=== PATIENT | female | born 2000 | race Caucasian/White ===

== ENCOUNTER 2022-09-29 14:05 | Emergency (ER) | payer SELFPAY ==
[2022-09-29 14:53] LABS: Bilirubin Neg (Negative); Blood, Urine Negative (Negative); Clarity Clear (Clear); Glucose, Urine (Dipstick) Normal (Negative); Ketone, Urine Negative (Negative); Leukocyte 25 (Negative); Nitrite Negative (Negative); Protein, Urine (Dipstick) Negative (Neg-Trace); Urobilinogen Normal mg/dL (Less than 2)
[2022-09-29 15:05] LABS: Bacteria/HPF 3+ HPF (None Seen); RBC/HPF 0-3 HPF (0-3); Squamous Epithelial 0-3 HPF (0-3); WBC/HPF 0-3 HPF (0-3)
[2022-09-29 15:22] LABS: ALT (SGPT) 12 U/L (8-55); AST (SGOT) 16 U/L (5-34); Albumin 3.7 g/dL (3.5-5.0); Alkaline Phosphatase 53 U/L (40-110); Anion Gap 12 mmol/L (10-20); BUN (Urea Nitrogen) 7 mg/dL (7.0-18.7); Bilirubin, Total 0.2 mg/dL (0.2-1.2); Calc. Creatinine Clearance 0 mL/min (70-130); Calcium 8.3 mg/dL (7.8-10.44); Carbon Dioxide 20 mmol/L (22-29); Chloride 107 mmol/L (98-107); Estimated GFR 128; Globulin 2.7 g/dL (2.4-3.5); Glucose 101 mg/dL (70-105); Potassium 3.9 mmol/L (3.5-5.1); Protein, Total 6.4 g/dL (6.0-8.3); Sodium 135 mmol/L (136-145)
[2022-09-29 15:29] LABS: #Basophils 0.1 10x3/uL (0.0-0.2); #Eosinphils 0.3 10x3/uL (0.0-0.5); #Monocytes 0.5 10x3/uL (0.0-1.1); #Neutrophils 7.6 10x3/uL (1.5-8.4); %Basophils 0.8 % (0.0-2.0); %Eosinophils 2.4 % (0.0-6.0); %Lymphocytes 17.7 % (18.0-47.0); %Monocytes 5.2 % (0.0-10.0); %Neutrophils 73.4 % (40.0-75.0); Hemoglobin 11.2 g/dL (12.0-15.5); Mean Corpuscular HGB CONC 33.4 g/dL (32.0-36.0); Mean Corpuscular Hemoglobin 28.9 pg (27.0-33.0); Mean Corpuscular Volume 86.6 fl (81.6-98.3); Mean Platelet Volume 9.2 fl (7.4-10.4); Platelet Count 399 10x3/uL (150-450); RBC Distribution Width 12.6 % (11.5-14.5); Red Blood Cell (RBC) Count 3.87 10x6/uL (3.90-5.03); White Blood Cell (WBC) Count 10.3 10x3/uL (3.5-10.5)
[2022-09-29 15:33] LABS: INR-International Normal Ratio 0.9; PTT 21.8 sec (22.0-33.0); Prothrombin Time 9.8 sec (9.5-12.1)
== END 2022-09-29 17:10 | disposition home or self-care (01) ==
LOC: CSHERS 14:05
DX: R56.9 Unspecified convulsions (principal); F17.210 Nicotine dependence, cigarettes, uncomplicated
CPT/HCPCS: 36415; 80053; 81003; 81015; 85025; 85610; 85730; 93005

== ENCOUNTER 2022-11-16 12:25 | Day surgery (SDC) | payer OTHER ==
[2022-11-16] MEDS ORDERED: Acetaminophen 500 MG TAB PO SCH (13:15)
[2022-11-16 13:40] LABS: Bilirubin Neg (Negative); Blood, Urine Negative (Negative); Clarity Clear (Clear); Glucose, Urine (Dipstick) Normal (Negative); Ketone, Urine Negative (Negative); Leukocyte Negative (Negative); Nitrite Negative (Negative); Protein, Urine (Dipstick) Negative (Neg-Trace); Urobilinogen Normal mg/dL (Less than 2)
[2022-11-16 13:47] LABS: Bacteria/HPF None Seen HPF (None Seen); RBC/HPF None Seen HPF (0-3); Squamous Epithelial 0-3 HPF (0-3); WBC/HPF None Seen HPF (0-3)
[2022-11-16 14:05] LABS: #Basophils 0.1 10x3/uL (0.0-0.2); #Eosinphils 0.7 10x3/uL (0.0-0.5); #Monocytes 0.6 10x3/uL (0.0-1.1); #Neutrophils 8.4 10x3/uL (1.5-8.4); %Basophils 0.7 % (0.0-2.0); %Eosinophils 5.7 % (0.0-6.0); %Lymphocytes 19.2 % (18.0-47.0); %Monocytes 4.9 % (0.0-10.0); %Neutrophils 68.2 % (40.0-75.0); Hemoglobin 10.8 g/dL (12.0-15.5); Mean Corpuscular HGB CONC 33.4 g/dL (32.0-36.0); Mean Corpuscular Hemoglobin 28.3 pg (27.0-33.0); Mean Corpuscular Volume 84.8 fl (81.6-98.3); Mean Platelet Volume 9.1 fl (7.4-10.4); Platelet Count 374 10x3/uL (150-450); RBC Distribution Width 12.4 % (11.5-14.5); Red Blood Cell (RBC) Count 3.81 10x6/uL (3.90-5.03); White Blood Cell (WBC) Count 12.3 10x3/uL (3.5-10.5)
== END 2022-11-16 16:20 | disposition home or self-care (01) ==
LOC: CSHLD/OP 12:25
PROVIDERS: ATTEND Family Medicine
DX: O98.811 Other maternal infectious and parasitic diseases complicating pregnancy, first trimester (principal); B37.31 Acute candidiasis of vulva and vagina; O99.891 Other specified diseases and conditions complicating pregnancy; O26.891 Other specified pregnancy related conditions, first trimester; R10.84 Generalized abdominal pain; Z3A.08 8 weeks gestation of pregnancy; Z88.6 Allergy status to analgesic agent; Z86.69 Personal history of other diseases of the nervous system and sense organs
CPT/HCPCS: 51701; 76775; 81001; 85025; 87086; 87480; 87510; 87660; 99285

== ENCOUNTER 2023-02-04 05:30 | Inpatient (IN) | payer OTHER ==
[2023-02-04] MEDS ORDERED: ePHEDrine Sulfate 50 MG/10 ML VIAL ONE (08:00)
[2023-02-04] MEDS ORDERED: Bupivacaine 0.25% HCL 30 ML VIAL ONE (08:00)
[2023-02-04] MEDS ORDERED: Bupivacaine PF 0.5% 30 ML VIAL ONE (08:00)
[2023-02-04 21:01] VITALS: BMI 37.8
[2023-02-04] MEDS ORDERED: Promethazine HCl 25 MG/ML VIAL IM PRN (21:50)
[2023-02-04] MEDS ORDERED: hydrALAZINE 20 MG/ML VIAL SLOW IVP PRN (21:50)
[2023-02-04] MEDS ORDERED: Carboprost 250 MCG/ML AMP IM PRN (21:50)
[2023-02-04] MEDS ORDERED: Ibuprofen 800 MG TAB PO PRN (21:50)
[2023-02-04] MEDS ORDERED: Ondansetron PF 4 MG/2 ML Vial IVP PRN (21:50)
[2023-02-04] MEDS ORDERED: Tranexamic Acid 1,000 MG/10 ML VIAL IVP PRN (21:50)
[2023-02-04] MEDS ORDERED: Diphenoxylate HCl/Atropine Tablet PO PRN (21:50)
[2023-02-04] MEDS ORDERED: Acetaminophen 500 MG TAB PO PRN (21:50)
[2023-02-04] MEDS ORDERED: Methylergonovine 0.2 MG/ML VIAL IM PRN (21:50)
[2023-02-04] MEDS ORDERED: Misoprostol 200 MCG TAB PR PRN (21:50)
[2023-02-04] MEDS ORDERED: Lidocaine 1% (PF) 30 ML VIAL SC PRN (21:50)
[2023-02-04] MEDS ORDERED: NS w/ Oxytocin 30 units 500 ML IV SCH ×3 (22:00)
[2023-02-04] MEDS: Misoprostol 100 MCG TAB VAG SCH (22:33)
[2023-02-04 22:59] LABS: Hematocrit 29.3 % (34.9-44.5); Mean Corpuscular HGB CONC 34.1 g/dL (32.0-36.0); Mean Corpuscular Hemoglobin 27.1 pg (27.0-33.0); Mean Corpuscular Volume 79.4 fl (81.6-98.3); Mean Platelet Volume 9.7 fl (7.4-10.4); Platelet Count 440 10x3/uL (150-450); RBC Distribution Width 14.5 % (11.5-14.5); Red Blood Cell (RBC) Count 3.69 10x6/uL (3.90-5.03); White Blood Cell (WBC) Count 10.4 10x3/uL (3.5-10.5)
[2023-02-04 23:24] LABS: HBSAg Index 0.16 S/CO (0-0.99); Hep B Surf Ag - L&D Non-Reactive S/CO (NonReactive); Syphilis Antibody Nonreactive (Nonreactive); Syphilis Antibody Index 0.02 S/CO (<1.00 Non-Reactive)
[2023-02-05] MEDS ORDERED: fentaNYL/Ropivacaine Epidural 100 ML ONE (02:12)
[2023-02-05] MEDS ORDERED: Moisturizing Cream (Eucerin) 113 GM JAR TOP PRN (03:03)
[2023-02-05] MEDS ORDERED: Promethazine HCl 25 MG/ML VIAL IM PRN (03:03)
[2023-02-05] MEDS ORDERED: Naloxone HCl 0.4 mg/ml Vial IVP PRN ×2 (03:03)
[2023-02-05] MEDS ORDERED: ePHEDrine Sulfate 50 MG/10 ML VIAL SLOW IVP PRN (03:03)
[2023-02-05] MEDS ORDERED: Lactated Ringer's 500 ML IV PRN (03:03)
[2023-02-05] MEDS ORDERED: diphenhydrAMINE 50 MG/ML VIAL IVP PRN (03:03)
[2023-02-05] MEDS ORDERED: Acetaminophen 325 MG TAB PO PRN (03:03)
[2023-02-05] MEDS ORDERED: Ondansetron PF 4 MG/2 ML Vial IVP PRN (03:03)
[2023-02-05] MEDS ORDERED: Communication Order-Pharmacy FS SCH (03:15)
[2023-02-05] MEDS: fentaNYL 2 mcg/Ropivacaine 0.2% Epidural 100 ML CADD EPIDURAL SCH ×2 (12:42→20:21)
[2023-02-05] MEDS ORDERED: CEFAZOLIN 2 GM VIAL ONE (23:22)
[2023-02-05] MEDS ORDERED: Azithromycin 500 MG VIAL ONE ×2 (23:22→23:43)
[2023-02-05] MEDS ORDERED: Famotidine/PF 20 mg/2ml Vial ONE (23:22)
[2023-02-05] MEDS ORDERED: Famotidine/PF 20 mg/2ml Vial SLOW IVP PRN (23:30)
[2023-02-05] MEDS ORDERED: Azithromycin 500 MG in Sodium Chloride 0.9% 250 ML 250 ML IVPB SCH (23:30)
[2023-02-05] MEDS ORDERED: CEFAZOLIN 2 GM in Sodium Chloride 0.9% 100 ML IVPB SCH (23:30)
[2023-02-05] MEDS ORDERED: Bicitra 30 ML UDCUP PO PRN (23:30)
[2023-02-05] MEDS ORDERED: Morphine PF 10 MG/10 ML VIAL ONE (23:44)
[2023-02-05] MEDS ORDERED: Ondansetron PF 4 MG/2 ML Vial ONE (23:44)
[2023-02-05] MEDS ORDERED: Dexamethasone 4 mg/ml Vial ONE (23:44)
[2023-02-06] MEDS ORDERED: Midazolam HCl 2 mg/2 ml Vial ONE ×3 (00:05→00:50)
[2023-02-06] MEDS ORDERED: fentaNYL 50 mcg/mL 1 mL Vial ONE (00:58)
[2023-02-06] MEDS ORDERED: Ketorolac Tromethamine 30 MG/ML VIAL ONE (01:25)
[2023-02-06] MEDS ORDERED: diphenhydrAMINE 50 MG/ML VIAL IVP PRN (01:30)
[2023-02-06] MEDS ORDERED: HYDROmorphone 2 MG/ML VIAL SLOW IVP PRN (01:30)
[2023-02-06] MEDS ORDERED: Ketorolac Tromethamine 30 MG/ML VIAL IVP SCH (01:30)
[2023-02-06] MEDS ORDERED: Ondansetron HCl/PF 4 MG/2 ML Vial IVP PRN (01:30)
[2023-02-06] MEDS ORDERED: Moisturizing Cream (Eucerin) 113 GM JAR TOP PRN (01:30)
[2023-02-06] MEDS ORDERED: Meperidine HCl/PF 25 MG/ML VIAL SLOW IVP PRN (01:30)
[2023-02-06] MEDS ORDERED: Promethazine HCl 25 MG/ML VIAL IM PRN (01:30)
[2023-02-06] MEDS ORDERED: Promethazine HCl 25 MG SUPP PR PRN (01:30)
[2023-02-06] MEDS ORDERED: Naloxone HCl 0.4 mg/ml Vial IVP PRN ×2 (01:30)
[2023-02-06] MEDS ORDERED: Fentanyl 100 MCG/2 ML VIAL SLOW IVP PRN (01:30)
[2023-02-06] MEDS ORDERED: Communication Order-Pharmacy FS SCH (01:30)
[2023-02-06] MEDS ORDERED: Naloxone HCl 0.4 mg/ml Vial IV PRN (01:30)
[2023-02-06] MEDS ORDERED: Ondansetron PF 4 MG/2 ML Vial IVP PRN ×2 (01:30→08:18)
[2023-02-06 04:05] LABS: Hematocrit 29.2 % (34.9-44.5); Hemoglobin 9.7 g/dL (12.0-15.5); Mean Corpuscular HGB CONC 33.2 g/dL (32.0-36.0); Mean Corpuscular Hemoglobin 26.6 pg (27.0-33.0); Mean Corpuscular Volume 80.2 fl (81.6-98.3); Platelet Count 355 10x3/uL (150-450); RBC Distribution Width 14.5 % (11.5-14.5); Red Blood Cell (RBC) Count 3.64 10x6/uL (3.90-5.03); White Blood Cell (WBC) Count 16.3 10x3/uL (3.5-10.5)
[2023-02-06] MEDS: Lactated Ringer's 1,000 ML IV SCH (07:12)
[2023-02-06] MEDS: Misoprostol 100 MCG TAB VAG SCH ×2 (07:13→07:14)
[2023-02-06] MEDS: Ketorolac Tromethamine 30 MG/ML VIAL IVP PRN ×3 (07:39→20:20)
[2023-02-06] MEDS ORDERED: NS w/ Oxytocin 30 units 500 ML IV SCH (08:18)
[2023-02-06] MEDS ORDERED: Lanolin Ointment 7 GM TUBE TOP PRN (08:18)
[2023-02-06] MEDS ORDERED: Methylergonovine 0.2 MG TAB PO PRN (08:18)
[2023-02-06] MEDS ORDERED: Boostrix 0.5 ML (Tdap) VIAL (>/=7 yrs of age) IM ONE (08:18)
[2023-02-06] MEDS ORDERED: Misoprostol 200 MCG TAB PR PRN (08:18)
[2023-02-06] MEDS ORDERED: hydrALAZINE 20 MG/ML VIAL SLOW IVP PRN (08:18)
[2023-02-06] MEDS ORDERED: diphenhydrAMINE 25 MG CAP PO PRN (08:18)
[2023-02-06] MEDS: Ferrous Sulfate 325 MG TAB PO SCH ×2 (08:46→20:20)
[2023-02-06] MEDS: Prenatal Vitamin 1 TAB PO SCH (08:46)
[2023-02-06] MEDS: Docusate 100 MG CAP PO SCH ×2 (08:47→20:20)
[2023-02-06] MEDS ORDERED: levETIRAcetam 500 MG TAB PO SCH (09:00)
[2023-02-06] MEDS: Acetaminophen 500 MG TAB PO SCH ×2 (09:43→18:03)
[2023-02-06] MEDS: HYDROcodone/Acetaminophen 5/325 mg Tablet PO PRN ×3 (12:09→20:20)
[2023-02-06] MEDS: Simethicone Chewable 80 MG TAB PO PRN (20:20)
[2023-02-06] MEDS ORDERED: Bisacodyl 10 MG SUPP PR PRN (23:18)
[2023-02-07] MEDS: Simethicone Chewable 80 MG TAB PO PRN ×4 (00:38→20:14)
[2023-02-07] MEDS: HYDROcodone/Acetaminophen 5/325 mg Tablet PO PRN ×5 (00:38→20:15)
[2023-02-07] MEDS: Acetaminophen 500 MG TAB PO SCH ×2 (02:20→10:29)
[2023-02-07] MEDS: Ketorolac Tromethamine 30 MG/ML VIAL IVP PRN (02:35)
[2023-02-07 03:12] LABS: Hemoglobin 8.7 g/dL (12.0-15.5); Mean Corpuscular HGB CONC 32.2 g/dL (32.0-36.0); Mean Corpuscular Hemoglobin 26.2 pg (27.0-33.0); Mean Corpuscular Volume 81.3 fl (81.6-98.3); Mean Platelet Volume 8.9 fl (7.4-10.4); Platelet Count 375 10x3/uL (150-450); RBC Distribution Width 14.7 % (11.5-14.5); Red Blood Cell (RBC) Count 3.32 10x6/uL (3.90-5.03); White Blood Cell (WBC) Count 12.7 10x3/uL (3.5-10.5)
[2023-02-07] MEDS: Ferrous Sulfate 325 MG TAB PO SCH ×2 (08:08→21:35)
[2023-02-07] MEDS: Ibuprofen 800 MG TAB PO SCH ×3 (08:08→21:35)
[2023-02-07] MEDS: Prenatal Vitamin 1 TAB PO SCH (08:08)
[2023-02-07] MEDS: Docusate 100 MG CAP PO SCH ×2 (08:08→21:35)
[2023-02-07 15:05] LABS: ALT (SGPT) 15 U/L (8-55); AST (SGOT) 16 U/L (5-34); Albumin 2.9 g/dL (3.5-5.0); Alkaline Phosphatase 101 U/L (40-110); Anion Gap 12 mmol/L (10-20); BUN (Urea Nitrogen) 10 mg/dL (7.0-18.7); Bilirubin, Total Less than 0.2 mg/dL (0.2-1.2); Calc. Creatinine Clearance 214 mL/min (70-130); Calcium 8.9 mg/dL (7.8-10.44); Carbon Dioxide 25 mmol/L (22-29); Chloride 109 mmol/L (98-107); Estimated GFR 128; Globulin 2.7 g/dL (2.4-3.5); Glucose 82 mg/dL (70-105); Potassium 3.9 mmol/L (3.5-5.1); Protein, Total 5.6 g/dL (6.0-8.3); Sodium 142 mmol/L (136-145)
[2023-02-07] MEDS ORDERED: Acetaminophen 325 MG TAB PO PRN (16:00)
[2023-02-07 16:50] LABS: Creatinine, Urine 36.75 mg/dL (47-110)
[2023-02-08] MEDS: HYDROcodone/Acetaminophen 5/325 mg Tablet PO PRN ×4 (00:29→16:44)
[2023-02-08 04:52] VITALS: TEMP 98.1
[2023-02-08] MEDS: Simethicone Chewable 80 MG TAB PO PRN ×2 (05:43→10:34)
[2023-02-08] MEDS: Ibuprofen 800 MG TAB PO SCH ×2 (05:43→13:30)
[2023-02-08] MEDS: Prenatal Vitamin 1 TAB PO SCH (07:49)
[2023-02-08] MEDS: Ferrous Sulfate 325 MG TAB PO SCH (07:49)
[2023-02-08] MEDS: Docusate 100 MG CAP PO SCH (07:49)
[2023-02-08 08:03] VITALS: BP 120/58
[2023-02-08 14:03] LABS: Creatinine, Urine 20.72 mg/dL (47-110)
== END 2023-02-08 17:20 | disposition home or self-care (01) | DRG 787 ==
LOC: CSHLD 18:39 → EEVIPCON 18:39 → CSHPP 02-06 04:35
PROVIDERS: ADMIT Obstetrics & Gynecology; ATTEND Obstetrics & Gynecology
PROC: 3E0E3GC Introduction of Other Therapeutic Substance into Products of Conception, Percutaneous Approach (ICD-10-PCS; 2023-02-05)
PROC: 10907ZC Drainage of Amniotic Fluid, Therapeutic from Products of Conception, Via Natural or Artificial Opening (ICD-10-PCS; 2023-02-05)
PROC: 10H07YZ Insertion of Other Device into Products of Conception, Via Natural or Artificial Opening (ICD-10-PCS; 2023-02-05)
PROC: 10D00Z1 Extraction of Products of Conception, Low, Open Approach (ICD-10-PCS; principal; 2023-02-06)
DX: O61.9 Failed induction of labor, unspecified (principal); O99.354 Diseases of the nervous system complicating childbirth; G40.909 Epilepsy, unspecified, not intractable, without status epilepticus; Z3A.39 39 weeks gestation of pregnancy; Z37.0 Single live birth; Z98.890 Other specified postprocedural states; Z79.899 Other long term (current) drug therapy; Z88.5 Allergy status to narcotic agent; O76 Abnormality in fetal heart rate and rhythm complicating labor and delivery
CPT/HCPCS: 36415; 51702; 72158; 80053; 82570; 84156; 85027; 86780; 86850; 86900; 86901; 87340; J1100; J1200; J1885; J2250; J2274; J2405; J3010; S0020; S0028